=== PATIENT | female | born 1940 | race Caucasian/White ===

== ENCOUNTER 2016-06-24 11:14 | Emergency (ER) | payer OTHER, BC ==
[~2016-06-24] VITALS: Ht 160 cm; Wt 75.4 kg
[2016-06-24 12:08] LABS: HEMATOCRIT 40.1 % (36.0-46.0); MCH 29.9 PG (29.0-34.0); MCHC 34.4 G/DL (30.0-36.0); MEAN PLAT.VOLUME 9.6 uM^3 (9.5-12.4); PLATELET COUNT 226 K/uL (156-360); RBC DIS.WIDTH-CV 13.9 % (11.8-14.6); RBC DIS.WIDTH-SD 43.4 % (39-53); RED BLOOD COUNT 4.61 M/uL (3.80-5.20); WHITE BLOOD COUNT 8.5 K/uL (4.1-10.2)
[2016-06-24 12:12] LABS: ADD MIUA? YES; BILIRUBIN NEGATIVE; BLOOD MODERATE; COLOR YELLOW ((YELLOW)); GLUCOSE (STRIP) NEGATIVE; KETONES NEGATIVE; LEUKOCYTES SMALL; NITRITE NEGATIVE; PROTEIN (STRIP) 30; SPECIFIC GRAVITY 1.023 (1.000-1.030); UROBILINOGEN 0.2 MG/DL (0.2-1.0)
[2016-06-24 12:16] LABS: CHLORIDE 109 mEq/L (99-109); POTASSIUM 3.1 mEq/L (3.7-5.4); SODIUM 145 mEq/L (136-147)
[2016-06-24 12:18] LABS: GLUCOSE 95 mg/dL (70-99)
[2016-06-24 12:19] LABS: ANION GAP 12 MEQ/L (2-14)
[2016-06-24 12:22] LABS: UREA NITROGEN (BUN) 14 mg/dL (9-23)
[2016-06-24 12:24] LABS: BACTERIA NONE SEEN /HPF; EPITHELIAL CELLS 1+ /HPF; MUCUS TRACE /LPF; UCUL ADDED? NO; WHITE BLOOD CELLS 20-30 /HPF (0-5)
[2016-06-24 12:25] LABS: GFR ESTIMATE (CALCULATED) 57 mL/min/
[2016-06-24] MEDS ORDERED: K-DUR20 MEQ PO (13:20)
[2016-06-24] MEDS ORDERED: CIPRO500 MG PO (13:20)
[2016-06-24] MEDS ORDERED: ZOFRAN ODT4 MG PO (13:56)
[2016-06-24 14:24] VITALS: BP 144/74
== END 2016-06-24 14:27 | disposition home or self-care (01) ==
LOC: EME 11:14
DX: N39.0 Urinary tract infection, site not specified (principal); E87.6 Hypokalemia; R63.1 Polydipsia; R11.0 Nausea
CPT/HCPCS: 70450; 80048; 81003; 85027; 93005; 99281; 99284; J2405; J7030

== ENCOUNTER 2017-01-25 21:10 | Emergency (ER) | payer BC, OTHER ==
[~2017-01-25] VITALS: Ht 160 cm; Wt 74.9 kg
[~2017-01-25 21:10] MED LIST: CIPRO500 MG PO; K-DUR20 MEQ PO; ZOFRAN ODT4 MG PO
[2017-01-26 01:01] LABS: HEMATOCRIT 39.7 % (36.0-46.0); MCH 29.9 PG (29.0-34.0); MCHC 33.2 G/DL (30.0-36.0); MEAN PLAT.VOLUME 10.1 uM^3 (9.5-12.4); PLATELET COUNT 248 K/uL (156-360); RBC DIS.WIDTH-CV 13.3 % (11.8-14.6); RBC DIS.WIDTH-SD 43.9 % (39-53); RED BLOOD COUNT 4.41 M/uL (3.80-5.20); WHITE BLOOD COUNT 9.6 K/uL (4.1-10.2)
[2017-01-26 01:11] LABS: CHLORIDE 108 mEq/L (99-109); POTASSIUM 3.3 mEq/L (3.7-5.4); SODIUM 140 mEq/L (136-147)
[2017-01-26 01:13] LABS: GLUCOSE 103 mg/dL (70-99)
[2017-01-26 01:14] LABS: ANION GAP 10 MEQ/L (2-14)
[2017-01-26 01:15] LABS: TOTAL BILIRUBIN 0.7 mg/dL (0.0-1.0)
[2017-01-26 01:16] LABS: ALKALINE PHOSPHATASE 110 IU/L (3-129)
[2017-01-26 01:17] LABS: GFR ESTIMATE (CALCULATED) > 59 mL/min/
[2017-01-26 01:18] LABS: UREA NITROGEN (BUN) 17 mg/dL (9-23)
[2017-01-26 01:20] LABS: LIPASE 44 U/L (1.0-51.0)
[2017-01-26 01:23] LABS: TROP-I INTERPRETATION NEGATIVE; TROPONIN-I < 0.01 ng/mL (0.0-0.30)
[2017-01-26 01:36] LABS: ADD MIUA? YES; BILIRUBIN NEGATIVE; BLOOD NEGATIVE; COLOR YELLOW ((YELLOW)); GLUCOSE (STRIP) NEGATIVE; KETONES NEGATIVE; LEUKOCYTES SMALL; NITRITE NEGATIVE; PROTEIN (STRIP) 30; SPECIFIC GRAVITY 1.033 (1.000-1.030); UROBILINOGEN 0.2 MG/DL (0.2-1.0)
[2017-01-26 01:41] LABS: BACTERIA RARE /HPF; EPITHELIAL CELLS RARE /HPF; HYALINE CASTS 0-5 /LPF; MUCUS TRACE /LPF; RED BLOOD CELLS 0-5 /HPF (0-5); UCUL ADDED? NO; WHITE BLOOD CELLS 0-5 /HPF (0-5)
[2017-01-26 02:27] VITALS: BP 159/94
== END 2017-01-26 02:27 | disposition home or self-care (01) ==
LOC: EME 21:10
PROVIDERS: Emergency Medicine
DX: B34.9 Viral infection, unspecified (principal); R10.9 Unspecified abdominal pain; E78.5 Hyperlipidemia, unspecified; I10 Essential (primary) hypertension; Z88.8 Allergy status to other drugs, medicaments and biological substances
CPT/HCPCS: 71020; 74000; 80053; 81003; 83690; 84484; 85027; 94640; 94640 76; 94664; 99281; 99285